=== PATIENT | female | born 1985 | race Two or more races ===

== ENCOUNTER 2022-09-13 19:50 | Emergency (ER) | payer OTHER ==
[~2022-09-13] VITALS: Ht 165.1 cm; Wt 69.7 kg
[2022-09-13 22:07] LABS: Albumin 3.3 g/dL (3.4-5.0); BUN/Creatinine Ratio 15.5; Calcium 9.3 mg/dL (8.5-10.1); Potassium 4.2 mmol/L (3.5-5.1)
[2022-09-13 22:09] LABS: Bilirubin, Total 0.4 mg/dL (0.2-1.0); Total Protein 6.8 g/dL (6.4-8.2)
[2022-09-13] MEDS ORDERED: METH10TA87 PO (22:43)
[2022-09-13 22:54] VITALS: BP 150/57
== END 2022-09-13 22:55 | disposition home or self-care (01) ==
LOC: ER 19:54
DX: E05.90 Thyrotoxicosis, unspecified without thyrotoxic crisis or storm (principal); R00.2 Palpitations
CPT/HCPCS: 36415; 80053; 84443; 84702; 85379; 93005

== ENCOUNTER 2023-02-05 20:51 | Emergency (ER) | payer OTHER ==
[~2023-02-05] VITALS: Ht 165.1 cm; Wt 73.0 kg
[~2023-02-05 20:51] MED LIST: METH10TA87 PO
[2023-02-06] MEDS ORDERED: CLINDAMYCIN HCL 150 MG CAP PO ONE (00:45)
[2023-02-06] MEDS ORDERED: KETOROLAC TROMETH 60MG/2ML VIAL IM ONE (00:45)
[2023-02-06] MEDS ORDERED: HYDROcodone-ACET 5/325MG TAB PO ONE (00:45)
[2023-02-06] MEDS ORDERED: CLIN300C70 PO (00:46)
[2023-02-06] MEDS ORDERED: IBU600T PO (00:46)
[2023-02-06 02:14] VITALS: BP 138/78
== END 2023-02-06 02:25 | disposition home or self-care (01) ==
LOC: ER 20:51
DX: K02.9 Dental caries, unspecified (principal); K08.9 Disorder of teeth and supporting structures, unspecified; L03.211 Cellulitis of face; Z79.899 Other long term (current) drug therapy
CPT/HCPCS: 96372; 99283; J1885

== ENCOUNTER 2023-09-10 10:37 | Emergency (ER) | payer OTHER ==
[~2023-09-10] VITALS: Ht 165.1 cm; Wt 72.7 kg
[~2023-09-10 10:37] MED LIST changes: +CLIN300C70 PO; +IBU600T PO
[2023-09-10 12:24] VITALS: BP 152/59; PULSE 105; RESP 16; TEMP 97.5; O2SAT 97
[2023-09-10] MEDS ORDERED: KETOROLAC TROMETH 30 MG/ML 1ML VIAL IM ONE (13:00)
[2023-09-10] MEDS ORDERED: IBUP-1456 PO (15:12)
== END 2023-09-10 15:32 | disposition home or self-care (01) ==
LOC: ER 10:37
DX: N60.02 Solitary cyst of left breast (principal); Z79.899 Other long term (current) drug therapy
CPT/HCPCS: 76642; 96372; 99285; J1885